=== PATIENT | female | born 2000 | race Hispanic/Latino ===

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

== ENCOUNTER 2022-07-09 13:20 | Emergency (ER) | payer MEDICAID ==
[~2022-07-09] VITALS: Ht 154.9 cm; Wt 63.5 kg
[~2022-07-09 13:20] MED LIST: AMOX500C2 PO; CIPR-278 PO; FAMO20TA8 PO; IBUP-2070 PO; ONDA4TAB10 PO
[2022-07-09 13:28] VITALS: BP 141/101
[2022-07-09 14:02] LABS: BASOPHILS % (AUTO) 0.2 % (0.0-5.0); EOSINOPHILS % (AUTO) 0.6 % (0.0-8.0); HEMATOCRIT 38.6 % (36-48); LYMPHOCYTES % (AUTO) 25.4 % (21.0-51.0); MEAN CORPUSCULAR HEMOGLOBIN 25.9 pg (27.0-33.0); MEAN CORPUSCULAR HGB CONC 32.4 g/dL (32.0-36.0); MEAN CORPUSCULAR VOLUME 80.1 fL (80-100); MONOCYTES % (AUTO) 6.7 % (3.0-13.0); NEUTROPHILS % (AUTO) 66.7 % (40.0-77.0); PLATELET COUNT (AUTO) 181 K/uL (130-400); RED BLOOD CELL COUNT(AUTO) 4.82 MIL/uL (4.00-5.50); RED CELL DISTRIBUTION WIDTH 16.9 % (11.0-15.5); WHITE BLOOD COUNT (AUTO) 4.8 K/uL (4.8-10.8)
[2022-07-09 14:02] LABS: AMPHET/METH SCREEN,URINE NEGATIVE (NEGATIVE); BARBITURATE SCREEN, URINE NEGATIVE (NEGATIVE); BENZODIAZEPINES SCREEN,URINE POSITIVE (NEGATIVE); CANNABINOID SCREEN,URINE POSITIVE (NEGATIVE); COCAINE SCREEN,URINE NEGATIVE (NEGATIVE); OPIATE SCREEN,URINE NEGATIVE (NEGATIVE); PHENCYCLIDINE SCREEN,URINE NEGATIVE (NEGATIVE)
[2022-07-09 14:09] LABS: APPEARANCE,URINE CLOUDY (CLEAR); BILIRUBIN,URINE 0.5 mg/dL (NEGATIVE); COLOR,URINE YELLOW (YELLOW); GLUCOSE, URINE (UA) NEGATIVE (NEGATIVE); KETONES,URINE 150 mg/dL (NEGATIVE); LEUKOCYTE ESTERASE ,URINE 25 Leu/uL (NEGATIVE); NITRATE,URINE NEGATIVE (NEGATIVE); PH,URINE 5.5 (5.0-8.0); PROTEIN,URINE 50 mg/dL (NEGATIVE); UROBILINOGEN,URINE 3 mg/dL (0.2-1.0)
[2022-07-09 14:13] LABS: CREATININE 0.7 mg/dL (0.5-1.5); POTASSIUM 3.9 mmol/L (3.5-5.1)
[2022-07-09 14:17] LABS: HCG,QUALITATIVE URINE NEGATIVE (NEGATIVE)
[2022-07-09 14:17] LABS: ALBUMIN 4.2 g/dL (3.5-5.0)
[2022-07-09 14:20] LABS: BACTERIA,URINE MOD /HPF (None Seen); MUCUS,URINE MANY LPF (None Seen); SQUAMOUS EPITHELIAL CELL,UR MANY /HPF (0-2)
[2022-07-09] MEDS ORDERED: 0.9%NACL 1000ML 1,000 ML IV ONE (14:30)
[2022-07-09] MEDS ORDERED: FAMOTIDINE 20MG VIAL IV ONE (14:30)
[2022-07-09] MEDS ORDERED: ONDANSETRON 4MG INJ IVP ONE (14:30)
[2022-07-09] MEDS ORDERED: MORPHINE 2 MG SYG IVP ONE (14:30)
[2022-07-09] MEDS ORDERED: IOHEXOL 350 MG/ML 100ML INFUS..BTL IV ONE (14:31)
[2022-07-09] MEDS ORDERED: ONDA4TAB10 PO (15:39)
[2022-07-09] MEDS ORDERED: FAMO-136 PO (15:39)
== END 2022-07-09 16:08 | disposition home or self-care (01) ==
LOC: EDH 13:20
DX: K29.70 Gastritis, unspecified, without bleeding (principal); R10.31 Right lower quadrant pain; R11.2 Nausea with vomiting, unspecified; Z79.899 Other long term (current) drug therapy
CPT/HCPCS: 99285; 74177; 96374; 96361; 96375 ×2; 80053; 80305; 83690; 85025; 87088; 81001; 81025; 36415; J7030; J2405; Q9967; S0028; J3490

== ENCOUNTER 2022-07-18 23:43 | Emergency (ER) | payer MEDICAID ==
[~2022-07-18] VITALS: Ht 157.5 cm; Wt 64.9 kg
[~2022-07-18 23:43] MED LIST changes: +FAMO-136 PO
[2022-07-19 00:22] LABS: APPEARANCE,URINE CLOUDY (CLEAR); BILIRUBIN,URINE NEGATIVE (NEGATIVE); COLOR,URINE LIGHT-YELLOW (YELLOW); GLUCOSE, URINE (UA) NEGATIVE (NEGATIVE); KETONES,URINE 10 mg/dL (NEGATIVE); LEUKOCYTE ESTERASE ,URINE 25 Leu/uL (NEGATIVE); NITRATE,URINE NEGATIVE (NEGATIVE); OCCULT BLOOD,URINE LARGE (NEGATIVE); PROTEIN,URINE 30 mg/dL (NEGATIVE); UROBILINOGEN,URINE 0.2 mg/dL (0.2-1.0)
[2022-07-19 00:27] LABS: HCG,QUALITATIVE URINE NEGATIVE (NEGATIVE)
[2022-07-19 00:33] LABS: BACTERIA,URINE RARE /HPF (None Seen); MUCUS,URINE RARE LPF (None Seen); RBC,URINE 51-100 /HPF (0-1); SQUAMOUS EPITHELIAL CELL,UR MANY /HPF (0-2)
[2022-07-19 00:34] LABS: BASOPHILS % (AUTO) 0.2 % (0.0-5.0); EOSINOPHILS % (AUTO) 0.5 % (0.0-8.0); HEMATOCRIT 38.5 % (36-48); LYMPHOCYTES % (AUTO) 36.5 % (21.0-51.0); MEAN CORPUSCULAR HEMOGLOBIN 26.5 pg (27.0-33.0); MEAN CORPUSCULAR HGB CONC 33.2 g/dL (32.0-36.0); MEAN CORPUSCULAR VOLUME 79.7 fL (80-100); MONOCYTES % (AUTO) 6.3 % (3.0-13.0); NEUTROPHILS % (AUTO) 56.3 % (40.0-77.0); PLATELET COUNT (AUTO) 193 K/uL (130-400); RED BLOOD CELL COUNT(AUTO) 4.83 MIL/uL (4.00-5.50); RED CELL DISTRIBUTION WIDTH 17.1 % (11.0-15.5); WHITE BLOOD COUNT (AUTO) 4.1 K/uL (4.8-10.8)
[2022-07-19 00:43] LABS: AMPHET/METH SCREEN,URINE NEGATIVE (NEGATIVE); BARBITURATE SCREEN, URINE NEGATIVE (NEGATIVE); BENZODIAZEPINES SCREEN,URINE POSITIVE (NEGATIVE); CANNABINOID SCREEN,URINE POSITIVE (NEGATIVE); COCAINE SCREEN,URINE NEGATIVE (NEGATIVE); OPIATE SCREEN,URINE NEGATIVE (NEGATIVE); PHENCYCLIDINE SCREEN,URINE NEGATIVE (NEGATIVE)
[2022-07-19 00:47] LABS: CREATININE 0.7 mg/dL (0.5-1.5); POTASSIUM 3.5 mmol/L (3.5-5.1)
[2022-07-19 00:49] LABS: INR 1.08 (0.85-1.15); PROTHROMBIN TIME 11.7 SEC (9.6-11.6)
[2022-07-19 00:51] LABS: PARTIAL THROMBOPLASTIN TIME 29.9 SEC (26.3-35.5)
[2022-07-19] MEDS ORDERED: ONDANSETRON 4MG INJ ONE (00:52)
[2022-07-19 00:53] LABS: ALBUMIN 4.2 g/dL (3.5-5.0); TOTAL PROTEIN, SERUM 7.7 g/dL (6.0-8.3)
[2022-07-19 01:41] VITALS: BP 126/76
== END 2022-07-19 01:42 | disposition home or self-care (01) ==
LOC: EDH 23:43
DX: G40.409 Other generalized epilepsy and epileptic syndromes, not intractable, without status epilepticus (principal); Z79.1 Long term (current) use of non-steroidal anti-inflammatories (NSAID)
CPT/HCPCS: 36415; 70450; 80053; 80305; 81001; 81025; 84146; 85025; 85610; 85730; 87088; J2405

== ENCOUNTER 2023-01-14 13:45 | Emergency (ER) | payer MEDICAID ==
[~2023-01-14] VITALS: Ht 157.5 cm; Wt 65.8 kg
[2023-01-14 15:51] VITALS: BP 147/74
[2023-01-14 16:21] LABS: APPEARANCE,URINE CLEAR (CLEAR); BILIRUBIN,URINE NEGATIVE (NEGATIVE); COLOR,URINE LIGHT-YELLOW (YELLOW); GLUCOSE, URINE (UA) >=1000 mg/dL (NEGATIVE); KETONES,URINE 150 mg/dL (NEGATIVE); OCCULT BLOOD,URINE NEGATIVE (NEGATIVE); PROTEIN,URINE 30 mg/dL (NEGATIVE)
[2023-01-14 16:22] LABS: LEUKOCYTE ESTERASE ,URINE NEGATIVE Leu/uL (NEGATIVE); NITRATE,URINE NEGATIVE (NEGATIVE); UROBILINOGEN,URINE 0.2 mg/dL (0.2-1.0)
[2023-01-14 16:25] LABS: HCG,QUALITATIVE URINE NEGATIVE (NEGATIVE)
[2023-01-14 16:28] LABS: BACTERIA,URINE FEW /HPF (None Seen); MUCUS,URINE RARE LPF (None Seen); SQUAMOUS EPITHELIAL CELL,UR RARE /HPF (0-2)
[2023-01-14] MEDS ORDERED: PROMETHAZINE HCL 25 MG/ML 1ML AMPULE IM ONE (16:30)
[2023-01-14 16:31] LABS: AMPHET/METH SCREEN,URINE NEGATIVE (NEGATIVE); BARBITURATE SCREEN, URINE NEGATIVE (NEGATIVE); BENZODIAZEPINES SCREEN,URINE POSITIVE (NEGATIVE); CANNABINOID SCREEN,URINE POSITIVE (NEGATIVE); COCAINE SCREEN,URINE NEGATIVE (NEGATIVE); OPIATE SCREEN,URINE NEGATIVE (NEGATIVE); PHENCYCLIDINE SCREEN,URINE NEGATIVE (NEGATIVE)
[2023-01-14 16:41] LABS: BASOPHILS % (AUTO) 0.2 % (0.0-5.0); HEMATOCRIT 35.2 % (36-48); MEAN CORPUSCULAR HEMOGLOBIN 24.1 pg (27.0-33.0); MEAN CORPUSCULAR HGB CONC 31.3 g/dL (32.0-36.0); MEAN CORPUSCULAR VOLUME 77.2 fL (80-100); MONOCYTES % (AUTO) 4.1 % (3.0-13.0); NEUTROPHILS % (AUTO) 91.1 % (40.0-77.0); PLATELET COUNT (AUTO) 172 K/uL (130-400); RED BLOOD CELL COUNT(AUTO) 4.56 MIL/uL (4.00-5.50); WHITE BLOOD COUNT (AUTO) 16.4 K/uL (4.8-10.8)
[2023-01-14 16:59] LABS: ALANINE AMINOTRANSFERASE 22 U/L (12-78); ALBUMIN 4.2 g/dL (3.5-5.0); ASPARTATE AMINOTRANSFERASE 15 U/L (10-37); CARBON DIOXIDE 25 mmol/L (21-32); CHLORIDE 101 mmol/L (101-111); CREATININE 0.7 mg/dL (0.5-1.5); GLOMERULAR FILTR. RATE CALC 126 mL/min (>90); GLUCOSE,RANDOM 184 mg/dL (70-105); POTASSIUM 3.2 mmol/L (3.5-5.1); SODIUM SERUM 134 mmol/L (136-145); TOTAL PROTEIN, SERUM 7.8 g/dL (6.0-8.3); UREA NITROGEN, BLOOD 8 mg/dL (7-18)
[2023-01-14 17:10] LABS: LIPASE < 50 U/L (114-286)
[2023-01-14] MEDS ORDERED: ONDA-104 PO (17:55)
[2023-01-14] MEDS ORDERED: PANT20TA18 PO (17:55)
[2023-01-14] MEDS ORDERED: DICY20TA2 PO (17:55)
== END 2023-01-14 18:19 | disposition home or self-care (01) ==
LOC: EDH 13:45
DX: K52.9 Noninfective gastroenteritis and colitis, unspecified (principal); E86.0 Dehydration; N39.0 Urinary tract infection, site not specified; E87.6 Hypokalemia; F19.10 Other psychoactive substance abuse, uncomplicated; Z59.7 Insufficient social insurance and welfare support
CPT/HCPCS: 99285; 74176; 80053; 80305; 83690; 85025; 81001; 81025; 36415; 96372; J2550

== ENCOUNTER 2023-03-07 13:17 | Emergency (ER) | payer MEDICAID, OTHER ==
[~2023-03-07] VITALS: Ht 154.9 cm; Wt 62.3 kg
[~2023-03-07 13:17] MED LIST changes: +DICY20TA2 PO; +ONDA-104 PO; +PANT20TA18 PO
[2023-03-07 13:36] VITALS: BP 123/52; PULSE 91; RESP 16; O2SAT 100
[2023-03-07] MEDS ORDERED: PYRI100L2 PO (21:03)
[2023-03-07] MEDS ORDERED: CEPH500B PO (21:03)
== END 2023-03-07 14:14 | disposition left against medical advice (07) ==
LOC: EDH 13:17
DX: O21.9 Vomiting of pregnancy, unspecified (principal); Z53.21 Procedure and treatment not carried out due to patient leaving prior to being seen by health care provider
CPT/HCPCS: 99281

== ENCOUNTER 2023-03-07 16:51 | Emergency (ER) | payer OTHER ==
[~2023-03-07] VITALS: Ht 154.9 cm; Wt 61.2 kg
[2023-03-07] MEDS ORDERED: PANTOPRAZOLE 40 MG/VIAL IVP STA (17:48)
[2023-03-07] MEDS ORDERED: PANTOPRAZOLE 40 MG/VIAL ONE (17:49)
[2023-03-07] MEDS ORDERED: ONDANSETRON 4MG INJ ONE (17:49)
[2023-03-07] MEDS ORDERED: ONDANSETRON 4MG INJ IVP ONE ×2 (18:00→21:00)
[2023-03-07] MEDS ORDERED: 0.9%NACL 1000ML 1,000 ML IV ONE (18:00)
[2023-03-07 18:06] LABS: BASOPHILS # (AUTO) 0.02 K/uL (0.00-0.20); BASOPHILS % (AUTO) 0.2 % (0.0-5.0); HEMATOCRIT 35.4 % (36-48); IMMATURE GRANULOCYTE ABSOLUTE 0.07 K/uL (0-1); LYMPHOCYTES # (AUTO) 0.7 K/uL (1.0-4.8); MEAN CORPUSCULAR HEMOGLOBIN 24.9 pg (27.0-33.0); MEAN CORPUSCULAR HGB CONC 31.9 g/dL (32.0-36.0); MONOCYTES # (AUTO) 0.3 K/uL (0.1-1.0); MONOCYTES % (AUTO) 2.7 % (3.0-13.0); NEUTROPHILS # (AUTO) 10.9 K/uL (1.8-7.7); NEUTROPHILS % (AUTO) 90.5 % (40.0-77.0); PLATELET COUNT (AUTO) 235 K/uL (130-400); RED BLOOD CELL COUNT(AUTO) 4.54 MIL/uL (4.00-5.50); RED CELL DISTRIBUTION WIDTH 18.6 % (11.0-15.5); WHITE BLOOD COUNT (AUTO) 12.1 K/uL (4.8-10.8)
[2023-03-07 18:23] LABS: INR 1.07 (0.85-1.15); PROTHROMBIN TIME 12.4 SEC (9.6-11.6)
[2023-03-07 18:24] LABS: CREATININE 0.7 mg/dL (0.5-1.5); PARTIAL THROMBOPLASTIN TIME 25.2 SEC (26.3-35.5); POTASSIUM 3.8 mmol/L (3.5-5.1)
[2023-03-07 18:35] LABS: ALBUMIN 4.6 g/dL (3.5-5.0); BILIRUBIN,TOTAL 0.3 mg/dL (0.2-1.0); TOTAL PROTEIN, SERUM 8.3 g/dL (6.0-8.3)
[2023-03-07 19:43] LABS: APPEARANCE,URINE CLEAR (CLEAR); BILIRUBIN,URINE NEGATIVE (NEGATIVE); COLOR,URINE LIGHT-YELLOW (YELLOW); GLUCOSE, URINE (UA) NEGATIVE (NEGATIVE); KETONES,URINE 150 mg/dL (NEGATIVE); LEUKOCYTE ESTERASE ,URINE 25 Leu/uL (NEGATIVE); NITRATE,URINE NEGATIVE (NEGATIVE); PROTEIN,URINE 20 mg/dL (NEGATIVE); UROBILINOGEN,URINE 0.2 mg/dL (0.2-1.0)
[2023-03-07 19:50] LABS: AMPHET/METH SCREEN,URINE NEGATIVE (NEGATIVE); BARBITURATE SCREEN, URINE NEGATIVE (NEGATIVE); BENZODIAZEPINES SCREEN,URINE NEGATIVE (NEGATIVE); CANNABINOID SCREEN,URINE POSITIVE (NEGATIVE); COCAINE SCREEN,URINE NEGATIVE (NEGATIVE); OPIATE SCREEN,URINE NEGATIVE (NEGATIVE); PHENCYCLIDINE SCREEN,URINE NEGATIVE (NEGATIVE)
[2023-03-07 20:08] LABS: ADD UA MICROSCOPIC YES
[2023-03-07 20:18] LABS: BACTERIA,URINE FEW /HPF (None Seen); MUCUS,URINE FEW LPF (None Seen); SQUAMOUS EPITHELIAL CELL,UR MANY /HPF (0-2)
[2023-03-07] MEDS ORDERED: CEPHALEXIN 500 MG CAPSULE PO ONE (20:30)
[2023-03-07] MEDS ORDERED: CEFTRIAXONE 1G VIAL IVPB ONE (21:00)
[2023-03-07] MEDS ORDERED: CEPH500B PO (21:03)
[2023-03-07] MEDS ORDERED: PYRI100L2 PO (21:03)
[2023-03-07 21:18] VITALS: BP 132/81; PULSE 82; RESP 16; O2SAT 98
== END 2023-03-07 21:33 | disposition home or self-care (01) ==
LOC: EDH 16:51
DX: O23.41 Unspecified infection of urinary tract in pregnancy, first trimester (principal); N39.0 Urinary tract infection, site not specified; O21.9 Vomiting of pregnancy, unspecified; Z3A.01 Less than 8 weeks gestation of pregnancy; O99.331 Smoking (tobacco) complicating pregnancy, first trimester
CPT/HCPCS: 99284; 96374; 96361; 96375; 82550; 84484; 80053; 80305; 84702; 85025; 85610; 85730; 86850; 86900; 86901; 87040 ×2; 87088; 83605; 81025; 36415; 96376; 81001; J7030; J0696; J2405 ×2; C9113

== ENCOUNTER 2023-04-06 05:01 | Emergency (ER) | payer BC, MEDICAID ==
[~2023-04-06] VITALS: Ht 157.5 cm; Wt 58.6 kg
[~2023-04-06 05:01] MED LIST changes: +CEPH500B PO; +PYRI100L2 PO
[2023-04-06 05:30] LABS: BASOPHILS # (AUTO) 0.01 K/uL (0.00-0.20); BASOPHILS % (AUTO) 0.1 % (0.0-5.0); EOSINOPHILS # (AUTO) 0.01 K/uL (0.00-0.70); EOSINOPHILS % (AUTO) 0.1 % (0.0-8.0); HEMATOCRIT 34.4 % (36-48); IMMATURE GRANULOCYTE ABSOLUTE 0.02 K/uL (0-1); LYMPHOCYTES # (AUTO) 1.3 K/uL (1.0-4.8); LYMPHOCYTES % (AUTO) 16.8 % (21.0-51.0); MEAN CORPUSCULAR HEMOGLOBIN 24.9 pg (27.0-33.0); MEAN CORPUSCULAR HGB CONC 31.7 g/dL (32.0-36.0); MEAN CORPUSCULAR VOLUME 78.5 fL (80-100); MONOCYTES # (AUTO) 0.5 K/uL (0.1-1.0); MONOCYTES % (AUTO) 6.3 % (3.0-13.0); NEUTROPHILS # (AUTO) 5.9 K/uL (1.8-7.7); NEUTROPHILS % (AUTO) 76.4 % (40.0-77.0); PLATELET COUNT (AUTO) 213 K/uL (130-400); RED BLOOD CELL COUNT(AUTO) 4.38 MIL/uL (4.00-5.50); RED CELL DISTRIBUTION WIDTH 15.2 % (11.0-15.5); WHITE BLOOD COUNT (AUTO) 7.7 K/uL (4.8-10.8)
[2023-04-06] MEDS ORDERED: ONDANSETRON 4MG INJ IVP ONE (05:30)
[2023-04-06] MEDS ORDERED: LACTATED RINGERS 1000ML 1,000 ML IV ONE (05:30)
[2023-04-06 05:32] LABS: BILIRUBIN,URINE NEGATIVE (NEGATIVE); COLOR,URINE LIGHT-ORANGE (YELLOW); GLUCOSE, URINE (UA) NEGATIVE (NEGATIVE); KETONES,URINE 60 mg/dL (NEGATIVE); LEUKOCYTE ESTERASE ,URINE 500 Leu/uL (NEGATIVE); NITRATE,URINE NEGATIVE (NEGATIVE); OCCULT BLOOD,URINE NEGATIVE (NEGATIVE); PROTEIN,URINE 20 mg/dL (NEGATIVE); UROBILINOGEN,URINE 3 mg/dL (0.2-1.0)
[2023-04-06 05:37] LABS: ADD UA MICROSCOPIC YES; APPEARANCE,URINE CLOUDY (CLEAR)
[2023-04-06 05:48] LABS: BACTERIA,URINE RARE /HPF (None Seen); SQUAMOUS EPITHELIAL CELL,UR MANY /HPF (0-2)
[2023-04-06 06:17] LABS: CREATININE 0.6 mg/dL (0.5-1.5); POTASSIUM 3.2 mmol/L (3.5-5.1)
[2023-04-06 06:25] VITALS: BP 117/77; PULSE 70; RESP 15; O2SAT 99
[2023-04-06] MEDS ORDERED: CEPHALEXIN 500 MG CAPSULE PO ONE (06:30)
[2023-04-06] MEDS ORDERED: CEPH500B PO (06:31)
[2023-04-06 06:43] LABS: ALBUMIN 3.8 g/dL (3.5-5.0); BILIRUBIN,TOTAL 0.5 mg/dL (0.2-1.0); TOTAL PROTEIN, SERUM 7.1 g/dL (6.0-8.3)
== END 2023-04-06 06:42 | disposition home or self-care (01) ==
LOC: EDH 05:01
DX: O23.41 Unspecified infection of urinary tract in pregnancy, first trimester (principal); O26.891 Other specified pregnancy related conditions, first trimester; R10.2 Pelvic and perineal pain; O21.0 Mild hyperemesis gravidarum; O99.331 Smoking (tobacco) complicating pregnancy, first trimester; Z3A.09 9 weeks gestation of pregnancy; Z79.899 Other long term (current) drug therapy
CPT/HCPCS: 99284; 96374; 96361; 80053; 84702; 83690; 85025; 87088; 81001; 36415; J7120; J2405

== ENCOUNTER 2023-10-23 04:05 | Observation (INO) | payer BC, MEDICAID ==
[~2023-10-23] VITALS: Ht 154.9 cm; Wt 67.6 kg
[2023-10-23 04:06] VITALS: BP 139/75; PULSE 86; RESP 18
[2023-10-23 04:42] LABS: BILIRUBIN,URINE NEGATIVE (NEGATIVE); COLOR,URINE YELLOW (YELLOW); GLUCOSE, URINE (UA) NEGATIVE (NEGATIVE); KETONES,URINE 5 mg/dL (NEGATIVE); LEUKOCYTE ESTERASE ,URINE 500 Leu/uL (NEGATIVE); NITRATE,URINE NEGATIVE (NEGATIVE); OCCULT BLOOD,URINE SMALL (NEGATIVE); PROTEIN,URINE 100 mg/dL (NEGATIVE)
[2023-10-23 04:43] LABS: ADD UA MICROSCOPIC YES; APPEARANCE,URINE CLOUDY (CLEAR)
[2023-10-23 05:02] LABS: BACTERIA,URINE FEW /HPF (None Seen); MUCUS,URINE FEW LPF (None Seen); SQUAMOUS EPITHELIAL CELL,UR MANY /HPF (0-2); WBC,URINE TNTC /HPF (0-1)
== END 2023-10-23 05:30 | disposition home or self-care (01) ==
LOC: EDH 04:05 → LDH 04:20
PROVIDERS: ADMIT Obstetrics & Gynecology; ATTEND Obstetrics & Gynecology
DX: O26.893 Other specified pregnancy related conditions, third trimester (principal); R10.9 Unspecified abdominal pain; Z3A.38 38 weeks gestation of pregnancy
CPT/HCPCS: 87088; 81001; G0379; G0378

== ENCOUNTER 2023-10-29 22:58 | Observation (INO) | payer BC, MEDICAID ==
[~2023-10-29] VITALS: Ht 157.5 cm; Wt 73.5 kg
[2023-10-29 23:02] VITALS: BP 146/82; PULSE 77; RESP 20
[2023-10-29 23:41] LABS: APPEARANCE,URINE CLOUDY (CLEAR); BILIRUBIN,URINE NEGATIVE (NEGATIVE); COLOR,URINE YELLOW (YELLOW); GLUCOSE, URINE (UA) NEGATIVE (NEGATIVE); KETONES,URINE 5 mg/dL (NEGATIVE); LEUKOCYTE ESTERASE ,URINE 500 Leu/uL (NEGATIVE); NITRATE,URINE NEGATIVE (NEGATIVE); OCCULT BLOOD,URINE SMALL (NEGATIVE); PH,URINE 6.5 (5.0-8.0); PROTEIN,URINE 100 mg/dL (NEGATIVE)
[2023-10-29 23:50] LABS: ADD UA MICROSCOPIC YES
[2023-10-29 23:53] LABS: BACTERIA,URINE RARE /HPF (None Seen); MUCUS,URINE FEW LPF (None Seen); RBC,URINE 26-50 /HPF (0-1); SQUAMOUS EPITHELIAL CELL,UR MOD /HPF (0-2)
== END 2023-10-30 00:49 | disposition home or self-care (01) ==
LOC: EDH 22:58 → LDH 22:59
PROVIDERS: ADMIT Obstetrics & Gynecology; ATTEND Obstetrics & Gynecology
DX: O62.9 Abnormality of forces of labor, unspecified (principal); O26.893 Other specified pregnancy related conditions, third trimester; M54.50 Low back pain, unspecified; Z3A.39 39 weeks gestation of pregnancy; Z79.899 Other long term (current) drug therapy
CPT/HCPCS: 87088; 81001; 59025; 96360; G0378 ×2; G0379; J7120

== ENCOUNTER 2024-11-13 21:17 | Emergency (ER) | payer BC, MEDICAID ==
[~2024-11-13] VITALS: Ht 157.5 cm; Wt 54.4 kg
[~2024-11-13 21:17] MED LIST changes: +ONDA-243 PO; -ONDA4TAB10 PO
--- NOTE | 2024-11-13 21:20 | NUR ---
UA CUP PROVIDED
[2024-11-13 21:48] LABS: BASOPHILS # (AUTO) 0.02 K/uL (0.00-0.20); BASOPHILS % (AUTO) 0.3 % (0.0-5.0); EOSINOPHILS # (AUTO) 0.09 K/uL (0.00-0.70); EOSINOPHILS % (AUTO) 1.2 % (0.0-8.0); HEMATOCRIT 32.6 % (36-48); IMMATURE GRANULOCYTE ABSOLUTE 0.02 K/uL (0-1); LYMPHOCYTES # (AUTO) 1.9 K/uL (1.0-4.8); LYMPHOCYTES % (AUTO) 25.3 % (21.0-51.0); MEAN CORPUSCULAR HEMOGLOBIN 27.7 pg (27.0-33.0); MEAN CORPUSCULAR HGB CONC 32.5 g/dL (32.0-36.0); MEAN CORPUSCULAR VOLUME 85.1 fL (79-99); MONOCYTES # (AUTO) 0.5 K/uL (0.1-1.0); NEUTROPHILS # (AUTO) 4.9 K/uL (1.8-7.7); NEUTROPHILS % (AUTO) 65.9 % (40.0-77.0); PLATELET COUNT (AUTO) 224 K/uL (130-400); RED BLOOD CELL COUNT(AUTO) 3.83 MIL/uL (4.00-5.50); RED CELL DISTRIBUTION WIDTH 13.9 % (11.0-15.5); WHITE BLOOD COUNT (AUTO) 7.4 K/uL (4.8-10.8)
[2024-11-13 21:53] LABS: APPEARANCE,URINE CLOUDY (CLEAR); BILIRUBIN,URINE NEGATIVE (NEGATIVE); COLOR,URINE LIGHT-YELLOW (YELLOW); GLUCOSE, URINE (UA) NEGATIVE (NEGATIVE); HCG,QUALITATIVE URINE POSITIVE (NEGATIVE); KETONES,URINE NEGATIVE (NEGATIVE); LEUKOCYTE ESTERASE ,URINE 250 Leu/uL (NEGATIVE); NITRATE,URINE NEGATIVE (NEGATIVE); OCCULT BLOOD,URINE NEGATIVE (NEGATIVE); PH,URINE 7.5 (5.0-8.0); PROTEIN,URINE 10 mg/dL (NEGATIVE); UROBILINOGEN,URINE 0.2 mg/dL (0.2-1.0)
[2024-11-13 21:56] LABS: ADD UA MICROSCOPIC YES
[2024-11-13 21:57] LABS: MUCUS,URINE RARE LPF (None Seen); SQUAMOUS EPITHELIAL CELL,UR MANY /HPF (0-2)
[2024-11-13 22:12] LABS: CREATININE 0.5 mg/dL (0.5-1.0); POTASSIUM 3.8 mmol/L (3.5-5.1)
[2024-11-13] MEDS ORDERED: CEPH500T PO (23:45)
--- NOTE | 2024-11-13 23:46 | ERN ---
ED Note History of Present Illness Stated Complaint: VOMITING, CHILLS,ABD Chief Complaint: Multiple Complaints Time Seen by MD: 21:42 Time Seen by Midlevel: 22:30 Dictation: Ms. Dolan is a 24-year-old female with no reported chronic health issues who pr esented to the emergency department for evaluation of lower abdominal pain, nausea, and emesis x3. She denies having any fever, chills, shortness of breath, cough, chest pain, palpitations, edema, diarrhea, constipation, dysuria, hematuria, vaginal bleeding/discharge, headache, or dizziness. LMP 09/29/24. Allergies: Coded Allergies: No Known Drug Allergies (Unverified Allergy, Unknown, 02/17/20) Home Meds Active Scripts Cephalexin Monohydrate (Keflex) 500 Mg Cap, 500 MG PO QID for 7 Days, #28 CAP 0 Refills Prov:MERCEDEZ TATE Sr., MD 04/06/23 Famotidine (Famotidine) 20 Mg Tablet, 20 MG PO BID, #14 TAB Prov:KIT LEWIS 03/23/23 Cephalexin Monohydrate (Keflex) 500 Mg Cap, 500 MG PO QID for 7 Days, #28 CAP Prov:KIT LEWIS 03/23/23 Pyridoxine HCl (Vitamin B6) (Vitamin B6) 100 Mg/2.5 Ml Liquid, 50 MG PO QIDP PRN for NAUSEA, #100 ML 2 Refills Prov:MERCEDEZ TATE Sr., MD 03/07/23 Cephalexin Monohydrate (Keflex) 500 Mg Cap, 500 MG PO QID for 10 Days, #40 CAP 0 Refills Prov:MERCEDEZ TATE Sr., MD 03/07/23 Pantoprazole Sodium (Pantoprazole Sodium) 20 Mg Tablet.dr, 20 MG PO DAILY for 14 Days, #14 TAB Prov:HERBERT PENALOZA 01/14/23 Ondansetron HCl (Ondansetron HCl) 4 Mg Tablet, 4 MG PO TID for 3 Days, #9 TAB Prov:HERBERT PENALOZA 01/14/23 Dicyclomine HCl (Bentyl) 20 Mg Tab, 20 MG PO BID for 5 Days, #10 TAB Prov:HERBERT PENALOZA 01/14/23 Famotidine (Pepcid) 20 Mg Tablet, 20 MG PO BID, #14 TAB Prov:NESSA MANZO [facility] 07/09/22 Ondansetron (Ondansetron Odt) 4 Mg Tab.rapdis, 4 MG PO TID PRN for NAUSEA/VOMITING, #10 TAB Prov:NESSA MANZO [facility] 07/09/22 Famotidine (Famotidine) 20 Mg Tablet, 20 MG PO BID for 7 Days, #14 TAB Prov:KIT LEWIS V [facility] 06/20/22 Ondansetron (Ondansetron Odt) 4 Mg Tab.rapdis, 4 MG PO Q6HPRN PRN for NAUSEA for 2 Days, #8 TAB Prov:JOSHUAKIT ROSE V [facility] 06/20/22 Ciprofloxacin HCl (Cipro) 500 Mg Tablet, 1 TAB PO BID for 10 Days, #20 TAB 0 Refills Prov:KIT LEWIS V [facility] 06/20/22 Ibuprofen (Ibuprofen) 600 Mg Tablet, 600 MG PO Q6H PRN for PAIN, #30 TAB 0 Refills Prov:AKASH MADERA MD 01/14/22 Amoxicillin (Amoxicillin) 500 Mg Capsule, 500 MG PO BID, #15 CAP 0 Refills Prov:AKASH MADERA MD 01/14/22 Past Medical History Past Medical History: No Pertinent History Additional Past Medical Hx: PREECLAMPSIA Surgical History: None PSYCH History: no pertinent psych hx Family History: Negative Social History: Smokers, Lives with family LMP: Oct 06, 2024 : 2 Para: 2 Aborts: 0 RN Note Reviewed/Agreed w/PFSH: Yes Review of System Dictation REVIEW OF SYSTEMS: CONSTITUTIONAL: Patient denies fevers, chills, sweats and weight changes. EYES: Patient denies any visual symptoms. EARS, NOSE, AND THROAT: No difficulties with hearing. No symptoms of rhinitis or sore throat. CARDIOVASCULAR: Patient denies chest pains, palpitations, orthopnea and paroxysmal nocturnal dyspnea. RESPIRATORY: No dyspnea on exertion, no wheezing or cough. GI: No diarrhea, constipation, hematochezia or melena. Reports lower abdominal pain, nausea, and vomiting. LMP 09/29/24 : No urinary hesitancy or dribbling. No nocturia or urinary frequency. No abnormal urethral discharge. MUSCULOSKELETAL: No myalgias or arthralgias. NEUROLOGIC: No chronic headaches, no seizures. Patient denies numbness, tingling or weakness. PSYCHIATRIC: Patient denies problems with mood disturbance. No problems with anxiety. ENDOCRINE: No excessive urination or excessive thirst. DERMATOLOGIC: Patient denies any rashes or skin changes. Initial Vital Sign VS Vital Signs Date Time Temp Pulse Resp B/P (MAP) Pulse Ox O2 Delivery O2 Flow Rate FiO2 11/13/24 21:19 98.4 75 16 122/80 100 Room Air Physical Exam Dictation Vital signs: Reviewed. Afebrile Constitutional: No acute distress. Non-toxic appearing. Head/Face: Normocephalic, atraumatic. Eyes: Periorbital areas with no swelling, redness, or edema. Lids and lashes are normal. Conjunctival injection is absent. Sclera anicteric. Pupils equal, round, reactive to light. ENT: Pinnas intact and no signs of trauma or erythema. Ear canals clear and no discharge. TMs no erythema. No nasal discharge or bleeding noted. Oropharynx with no exudate, redness, swelling, masses, exudates, or evidence of obstruction. Uvula midline. Mucous membranes moist. Neck: Trachea midline, no masses palpated, and no cervical lymphadenopathy. No swelling. Supple, full range of motion. Chest/Axilla: No tenderness, no crepitus, no paradoxical movement, no retractions. Cardiovascular: Regular rate, regular rhythm, no murmur, no gallops. Symmetric pulses. No peripheral edema. Respiratory: Respirations even and unlabored. Lung sounds clear; no wheezes, rales or rhonchi. Room air SpO2 99% Gastrointestinal: Inspection is normal. No distention is appreciated. Bowel sounds are normal. No mass or organomegaly . There is no tenderness. No rebound. No rigidity. No voluntary or involuntary guarding. No Harden's sign. : Cloudy. Negative CVA tenderness bilaterally Neurological: Normal speech, gross motor function intact, gross sensory function intact. No focal weakness/Paresthesia. Musculoskeletal/Extremities: All extremities have full range of motion, no pain or tenderness on palpation. Symmetric pulses. Integumentary: Intact. Skin is normal color, warm and dry. Cap refill less than 3 seconds. Results (Laboratory/Radiology) Laboratory/Radiology Laboratory Tests Test 11/13/24 21:41 White Blood Count 7.4 K/uL (4.8-10.8) Red Blood Count 3.83 MIL/uL (4.00-5.50) L Hemoglobin 10.6 g/dL (12.0-16.0) L Hematocrit 32.6 % (36-48) L Mean Corpuscular Volume 85.1 fL (79-99) Mean Corpuscular Hemoglobin 27.7 pg (27.0-33.0) Mean Corpuscular Hemoglobin Concent 32.5 g/dL (32.0-36.0) Red Cell Distribution Width 13.9 % (11.0-15.5) Platelet Count 224 K/uL (130-400) Mean Platelet Volume 11.8 fL (7.5-10.5) H Immature Granulocyte % (Auto) 0.3 % (0-1) Neutrophils (%) (Auto) 65.9 % (40.0-77.0) Lymphocytes (%) (Auto) 25.3 % (21.0-51.0) Monocytes (%) (Auto) 7.0 % (3.0-13.0) Eosinophils (%) (Auto) 1.2 % (0.0-8.0) Basophils (%) (Auto) 0.3 % (0.0-5.0) Neutrophils # (Auto) 4.9 K/uL (1.8-7.7) Lymphocytes # (Auto) 1.9 K/uL (1.0-4.8) Monocytes # (Auto) 0.5 K/uL (0.1-1.0) Eosinophils # (Auto) 0.09 K/uL (0.00-0.70) Basophils # (Auto) 0.02 K/uL (0.00-0.20) Absolute Immature Granulocyte (auto 0.02 K/uL (0-1) Nucleated Red Blood Cells 0.0 % (0.0-0.19) Urine Color LIGHT-YELLOW (YELLOW) Urine Appearance CLOUDY (CLEAR) H Urine pH 7.5 (5.0-8.0) Urine Specific [place] 1.025 (1.001-1.031) Urine Protein 10 mg/dL (NEGATIVE) H Urine Glucose (UA) NEGATIVE mg/dL (NEGATIVE) Urine Ketones NEGATIVE mg/dL (NEGATIVE) Urine Occult Blood NEGATIVE (NEGATIVE) Urine Nitrate NEGATIVE (NEGATIVE) Urine Bilirubin NEGATIVE mg/dL (NEGATIVE) Urine Urobilinogen 0.2 mg/dL (0.2-1.0) Urine Leukocyte Esterase 250 [place]/uL (NEGATIVE) H Urine RBC 2-5 /HPF (0-1) H Urine WBC 6-10 /HPF (0-1) H Urine Squamous Epithelial Cells MANY /HPF (0-2) Urine Bacteria None /HPF (None Seen) Urine HCG, Qualitative POSITIVE (NEGATIVE) H Sodium Level 139 mmol/L (136-145) Potassium Level 3.8 mmol/L (3.5-5.1) Chloride Level 104 mmol/L (101-111) Carbon Dioxide Level 26 mmol/L (21-32) Blood Urea Nitrogen 15 mg/dL (7-18) Creatinine 0.5 mg/dL (0.5-1.0) Glomerular Filtration Rate Calc 136 mL/min (>90) Random Glucose 98 mg/dL (70-105) Total Calcium 8.7 mg/dL (8.5-10.1) Lipase 33 U/L (16-77) Labs Reviewed?: Yes ED Course ED Course Orders Procedure Category Date Status Time Vital Signs Per CPOE 11/13/24 Transmitted Routine 21:20 Saline Lock Iv CPOE 11/13/24 Transmitted 21:20 Cbc With Differential LAB 11/13/24 Complete 21:20 Lipase LAB 11/13/24 Complete 21:20 Urinalysis Profile LAB 11/13/24 Complete 21:20 Basic Metabolic Panel LAB 11/13/24 Complete 21:20 ,Urine Test LAB 11/13/24 Complete 21:20 Culture Urine JOSE M 11/13/24 In Process 21:56 Ceftriaxone 1g Vial PHA 11/13/24 Verified (Rocephine 1g Inj) 23:30 Vital Signs Date Time Temp Pulse Resp B/P (MAP) Pulse Ox O2 Delivery O2 Flow Rate FiO2 11/13/24 21:19 98.4 75 16 122/80 100 Room Air Uneventful ED course. Vital signs remained stable; afebrile and normotensive with room air SpO2 100%. Laboratory findings as noted below. HCG positive. UA cloudy;+ leukocyte esterase, protein, and UWBC 6-10. Culture pending. H/H 10.6/32.6. HCG quant has been added. She received initial dose Rocephin. Findings were discussed with patient and all questions were answered. She plans to receive OB care with Dr.Jarod Rico Medical Decision Making MDM MDM: Differential diagnosis: UTI, Gastroenteritis, Rationale: Tests considered and ordered secondary to shared decision making include: lab Previous outside records reviewed: Old ER visits. Risk of complication and/or morbidity or mortality of patient management: None Medications-Per medication reconciliation Need for hospitalization: Patient does not meet criteria for hospitalization. Need for emergency major/minor surgery: No There are no social concerns with this patient. Prescription drug management: vitamins Prescriptions will include symptomatic care Patient's prior external medical records from other ER visits were reviewed by me as indicated. Prior testing and results from previous visits were reviewed. Prior tests were taken into account with medical decision making and resource utilization, independent historian/historians were used to obtain complete medical history. I independently interpreted the test that were performed, results were reviewed by me and considered findings on radiology if ordered. Medical management and examination interpretation discussions were had by me with other qualified healthcare professionals as indicated for the patient's care. DX & DISP Disposition: Discharge Departure Impression: Primary Impression: UTI (urinary tract infection) Additional Impression: Nausea and vomiting during Condition: Stable Scripts Cephalexin (Cephalexin) 500 Mg Tablet 1 TAB PO BID for 10 Days, #20 TAB 0 Refills Prov: ZARA HANLEY NP 11/13/24 Additional Instructions: Rest. Drink plenty of fluids. Small light meals. Follow up as soon as possible with your OB, Dr. Ron Rico. Continue antibiotic with Keflex 500 mg twice daily x7 days. Tylenol only for fever or discomfort return to the emergency department for any worsening of symptoms or concerns. Referrals: SELF,REFERRAL (PCP) ROMMEL RICO MD Time of Disposition: 23:45 ZARA HANLEY NP November 13, 2024 23:46
[2024-11-13] MEDS: cefTRIAXone 1G VIAL IVPB ONE (23:50)
[2024-11-14 00:01] VITALS: BP 117/63; PULSE 66; RESP 18; TEMP 97.9; O2SAT 98
== END 2024-11-14 00:03 | disposition home or self-care (01) ==
LOC: EDH 21:17
DX: O23.41 Unspecified infection of urinary tract in pregnancy, first trimester (principal); N39.0 Urinary tract infection, site not specified; O21.9 Vomiting of pregnancy, unspecified; R10.2 Pelvic and perineal pain; O99.331 Smoking (tobacco) complicating pregnancy, first trimester; F17.200 Nicotine dependence, unspecified, uncomplicated; Z3A.01 Less than 8 weeks gestation of pregnancy; Z79.899 Other long term (current) drug therapy
CPT/HCPCS: 99284; 96374; 80048; 84702; 83690; 85025; 87086; 81001; 81025; 36415; J0696